=== PATIENT | female | born 1975 | race Caucasian/White ===

== ENCOUNTER 2019-02-22 17:29 | Emergency (ER) | payer OTHER ==
[~2019-02-22] VITALS: Ht 154.9 cm; Wt 74.8 kg
[~2019-02-22 17:29] MED LIST: PROZAC 20 MG20 M1
[2019-02-22 18:01] LABS: ABSOLUTE LYMPHOCYTES 1.3 thou/uL (0.8-5.3); ABSOLUTE MONOCYTES 0.4 thou/uL (0.0-1.2); ABSOLUTE NEUTROPHILS 3.6 thou/uL (1.6-8.1); BASOPHILS 0.2 %; EOSINOPHILS 0.3 %; HEMATOCRIT 38.4 % (37.0-47.0); LYMPHOCYTES 24.3 %; MCH 30.6 pg (26.0-34.0); MCHC 33.9 g/dL (28.0-37.0); MCV 90.4 fL (80.0-100.0); MONOCYTES 7.8 %; MPV 8.3 fl. (7.2-11.1); NUCLEATED RBCS 0 /100WBC; PLATELET COUNT* 182 thou/uL (150-400); POLYS 67.4 %; RBC 4.25 mil/uL (4.20-5.00); RDW-CV 14.1 % (10.5-14.5); WBC 5.4 thou/uL (4.0-11.0)
[2019-02-22 18:08] LABS: CALCIUM 8.3 mg/dL (8.5-10.1); POTASSIUM 3.1 mmol/L (3.5-5.1)
[2019-02-22 18:12] LABS: ALBUMIN 2.9 g/dL (3.4-5.0); TOTAL BILIRUBIN 0.3 mg/dL (<0.1-1.0); TOTAL PROTEIN 7.1 g/dL (6.4-8.2)
[2019-02-22] MEDS ORDERED: ZITHROMAX500 MG PO (20:11)
[2019-02-22] MEDS ORDERED: VENTOLIN HFA 1818 GM INH (20:11)
[2019-02-22] MEDS ORDERED: MEDROLDOSEPACK PO (20:11)
[2019-02-22 20:30] VITALS: BP 125/81
== END 2019-02-22 20:33 | disposition home or self-care (01) ==
LOC: M.ERS 17:29
PROVIDERS: Nurse Practitioner Family
DX: J18.9 Pneumonia, unspecified organism (principal); F32.9 Major depressive disorder, single episode, unspecified; F41.9 Anxiety disorder, unspecified; F17.210 Nicotine dependence, cigarettes, uncomplicated